=== PATIENT | male | born 1965 | race Caucasian/White ===

== ENCOUNTER → 2019-01-03 | Outpatient (CLI) | payer OTHER | END | disposition home or self-care (01) | LOC: OLS 13:56 → LAB SHORT 13:56 | DX: L08.89 Other specified local infections of the skin and subcutaneous tissue (principal) | CPT/HCPCS: 88305 ==

== ENCOUNTER → 2019-02-14 | Outpatient (CLI) | payer OTHER | END | disposition home or self-care (01) | LOC: PLD 07:58 → LAB SHORT 07:58 | DX: C44.629 Squamous cell carcinoma of skin of left upper limb, including shoulder (principal) | CPT/HCPCS: 88305 ==

== ENCOUNTER → 2019-03-20 | Outpatient (CLI) | payer OTHER | LOC: LAB SHORT 07:46 → PLD 07:46 | DX: L57.0 Actinic keratosis (principal) | CPT/HCPCS: 88305 ==

== ENCOUNTER 2019-10-19 11:39 | Emergency (ER) | payer OTHER ==
[~2019-10-19] VITALS: Ht 177.8 cm; Wt 78.0 kg
[2019-10-19 12:20] LABS: BASOPHILS ABSOLUTE AUTO 0.02 K/mm3 (0.00-0.23); BASOPHILS PERCENT AUTO 0 % (0-2); EOSINOPHILS ABSOLUTE AUTO 0.05 K/mm3 (0.00-0.68); EOSINOPHILS PERCENT AUTO 1 % (0-6); Hematocrit 41.1 % (37.0-53.0); Hemoglobin 14.2 g/dL (13.5-17.5); IMMATURE GRAN ABSOLUTE AUTO 0.02 K/mm3 (0.00-0.10); IMMATURE GRAN PERCENT AUTO 0 % (0-1); LYMPHOCYTES ABSOLUTE AUTO 0.81 K/mm3 (0.84-5.20); LYMPHOCYTES PERCENT AUTO 15 % (21-46); MONOCYTES ABSOLUTE AUTO 0.51 K/mm3 (0.16-1.47); MONOCYTES PERCENT AUTO 10 % (4-13); Mean Corpuscular HGB Conc 34.5 g/dL (31.5-36.5); Mean Corpuscular Volume 93 fL (80-100); Mean Platelet Volume 9.5 fL (9.1-12.4); NEUTROPHILS ABSOLUTE AUTO 3.93 K/mm3 (1.96-9.15); NEUTROPHILS PERCENT AUTO 74 % (41-73); Platelet Count 167 K/mm3 (150-400); RDW Coefficient Variation 13.2 % (11.7-14.2); RDW Standard Deviation 45.1 fL (35.1-46.3); Red Blood Cell Count 4.44 M/mm3 (4.30-5.90); White Blood Cell Count 5.34 K/mm3 (4.00-11.30)
[2019-10-19 12:44] LABS: Alanine Aminotransfer (ALT/SGP 108 U/L (12-78); Albumin, Blood 3.7 g/dL (3.4-5.0); Albumin/Globulin Ratio 0.8 (0.8-1.8); Alk Phos 115 U/L (50-136); Anion Gap 9 mmol/L (6-16); Aspartate Aminotrans (AST/SGOT 128 U/L (12-37); Bilirubin, Total 0.5 mg/dL (0.1-1.0); Blood Urea Nitrogen 5 mg/dL (8-24); Bun/Creatinine Ratio 6.6 (12.0-20.0); CO2, Blood 23 mmol/L (21-32); Calcium, Blood 8.4 mg/dL (8.5-10.1); Chloride, Blood 95 mmol/L (98-108); Creatinine, Blood 0.76 mg/dL (0.60-1.20); Globulin, Blood 4.7 g/dL (2.2-4.0); Glomerular Filtration Rate >60 (60-); Glucose, Blood 103 mg/dL (70-99); Potassium, Blood 4.3 mmol/L (3.5-5.5); Sodium, Blood 127 mmol/L (136-145); Total Protein, Blood 8.4 g/dL (6.4-8.2); Troponin I <0.015 ng/mL (0.000-0.040)
== END 2019-10-19 13:32 | disposition home or self-care (01) ==
LOC: ER 11:39
PROVIDERS: Emergency Medicine
DX: R07.9 Chest pain, unspecified (principal); M25.561 Pain in right knee; L40.9 Psoriasis, unspecified; M79.89 Other specified soft tissue disorders; E87.1 Hypo-osmolality and hyponatremia; Z91.018 Allergy to other foods
CPT/HCPCS: 36415; 71045; 80053; 83880; 84484; 85025; 93005; 93010; 99284-25

== ENCOUNTER → 2019-12-27 | Outpatient (CLI) | payer OTHER ==
[2019-12-27 19:36] LABS: Alanine Aminotransfer (ALT/SGP 53 U/L (12-78); Albumin, Blood 3.9 g/dL (3.4-5.0); Albumin/Globulin Ratio 0.8 (0.8-1.8); Alk Phos 101 U/L (50-136); Anion Gap 10 mmol/L (6-16); Aspartate Aminotrans (AST/SGOT 68 U/L (12-37); Bilirubin, Total 0.5 mg/dL (0.1-1.0); Blood Urea Nitrogen 5 mg/dL (8-24); Bun/Creatinine Ratio 6.9 (12.0-20.0); CO2, Blood 21 mmol/L (21-32); Chloride, Blood 99 mmol/L (98-108); Creatinine, Blood 0.73 mg/dL (0.60-1.20); Globulin, Blood 4.8 g/dL (2.2-4.0); Glomerular Filtration Rate >60 (60-); Glucose, Blood 91 mg/dL (70-99); Potassium, Blood 4.5 mmol/L (3.5-5.5); Prostate Specific Antigen 0.225 ng/mL (0.000-4.000); Sodium, Blood 130 mmol/L (136-145); Total Protein, Blood 8.7 g/dL (6.4-8.2)
== END | disposition home or self-care (01) ==
LOC: LAB SHORT 17:44 → LAB 17:44
PROVIDERS: Nurse Practitioner Family
DX: K76.0 Fatty (change of) liver, not elsewhere classified (principal); N40.1 Benign prostatic hyperplasia with lower urinary tract symptoms
CPT/HCPCS: 80053; 84153

== ENCOUNTER → 2020-04-14 | Outpatient (CLI) | payer OTHER | LOC: LAB 12:30 → LAB SHORT 12:30 | DX: L08.0 Pyoderma (principal) | CPT/HCPCS: 87070; 87077; 87147; 87186; 87205 ==

== ENCOUNTER → 2020-11-06 | Outpatient (CLI) | payer OTHER ==
[2020-11-06 17:29] LABS: Hematocrit 47.2 % (37.0-53.0); Mean Corpuscular HGB 33.1 pg (26.0-34.0); Mean Corpuscular Volume 92 fL (80-100); Mean Platelet Volume 9.6 fL (9.1-12.4); Platelet Count 188 K/mm3 (150-400); RDW Coefficient Variation 12.1 % (11.7-14.2); RDW Standard Deviation 41.1 fL (35.1-46.3); Red Blood Cell Count 5.13 M/mm3 (4.30-5.90); White Blood Cell Count 2.29 K/mm3 (4.00-11.30)
[2020-11-06 17:36] LABS: LDL/HDL RATIO 1.9
[2020-11-06 17:37] LABS: Alanine Aminotransfer (ALT/SGP 26 U/L (12-78); Albumin, Blood 3.9 g/dL (3.4-5.0); Albumin/Globulin Ratio 0.8 (0.8-1.8); Alk Phos 82 U/L (50-136); Anion Gap 9 mmol/L (6-16); Aspartate Aminotrans (AST/SGOT 22 U/L (12-37); Bilirubin, Total 0.3 mg/dL (0.1-1.0); Blood Urea Nitrogen 4 mg/dL (8-24); CHOL/HDL RATIO 3.6; CO2, Blood 20 mmol/L (21-32); Chloride, Blood 102 mmol/L (98-108); Cholesterol 134 mg/dL (50-200); Globulin, Blood 4.7 g/dL (2.2-4.0); Glucose, Blood 72 mg/dL (70-99); HDL Cholesterol 37 mg/dL (>39); Low Density Lipoprotein Chol 71 mg/dL (0-110); Potassium, Blood 3.8 mmol/L (3.5-5.5); Sodium, Blood 131 mmol/L (136-145); Total Protein, Blood 8.6 g/dL (6.4-8.2); Triglycerides 129 mg/dL (30-160); Very Low Density Lipoprot Chol 25 mg/dL (6-32)
[2020-11-06 17:43] LABS: Bun/Creatinine Ratio 5.6 (12.0-20.0); Creatinine, Blood 0.72 mg/dL (0.60-1.20); Glomerular Filtration Rate >60 (60-)
[2020-11-06 18:09] LABS: BASOPHILS PERCENT MAN 0 % (0-2); EOSINOPHILS PERCENT MAN 0 % (0-6); LYMPHOCYTES % ATYPICAL MANUAL 3 % (0-0); LYMPHOCYTES ABSOLUTE MAN 1.23 K/mm3 (0.84-5.20); LYMPHOCYTES PERCENT MAN 51 % (21-46); MONOCYTES PERCENT MAN 9 % (4-13); NEUTROPHILS ABSOLUTE MAN 0.84 K/mm3 (1.96-9.15); SEG NEUTROPHILS PERCENT MAN 37 % (41-73); TOTAL CELLS COUNTED 100
== END ==
LOC: LAB 15:46 → LAB SHORT 15:46
PROVIDERS: Nurse Practitioner Family
DX: Z13.29 Encounter for screening for other suspected endocrine disorder (principal); E11.65 Type 2 diabetes mellitus with hyperglycemia; E78.5 Hyperlipidemia, unspecified; I10 Essential (primary) hypertension; Z91.010 Allergy to peanuts
CPT/HCPCS: 80053; 80061; 83036; 84443; 85025

== ENCOUNTER → 2021-04-22 | Outpatient (CLI) | payer OTHER ==
[~2021-04-22] MED LIST: ASPI81CH; Amitriptyline H10 MG; LOSA25; METFORMIN500 MG/51; MIRT15; OLAN10; OMEP20ER; PRAV20
[2021-04-22 19:17] LABS: BASOPHILS ABSOLUTE AUTO 0.04 K/mm3 (0.00-0.23); BASOPHILS PERCENT AUTO 1 % (0-2); EOSINOPHILS ABSOLUTE AUTO 0.08 K/mm3 (0.00-0.68); EOSINOPHILS PERCENT AUTO 2 % (0-6); Hematocrit 44.4 % (37.0-53.0); Hemoglobin 15.2 g/dL (13.5-17.5); IMMATURE GRAN ABSOLUTE AUTO 0.01 K/mm3 (0.00-0.10); IMMATURE GRAN PERCENT AUTO 0 % (0-1); LYMPHOCYTES ABSOLUTE AUTO 1.16 K/mm3 (0.84-5.20); LYMPHOCYTES PERCENT AUTO 33 % (21-46); MONOCYTES ABSOLUTE AUTO 0.48 K/mm3 (0.16-1.47); MONOCYTES PERCENT AUTO 14 % (4-13); Mean Corpuscular HGB 33.2 pg (26.0-34.0); Mean Corpuscular HGB Conc 34.2 g/dL (31.5-36.5); Mean Corpuscular Volume 97 fL (80-100); Mean Platelet Volume 9.4 fL (9.1-12.4); NEUTROPHILS ABSOLUTE AUTO 1.79 K/mm3 (1.96-9.15); NEUTROPHILS PERCENT AUTO 50 % (41-73); Platelet Count 184 K/mm3 (150-400); RDW Coefficient Variation 12.8 % (11.7-14.2); RDW Standard Deviation 45.7 fL (35.1-46.3); Red Blood Cell Count 4.58 M/mm3 (4.30-5.90); White Blood Cell Count 3.56 K/mm3 (4.00-11.30)
[2021-04-22 19:56] LABS: Alanine Aminotransfer (ALT/SGP 26 U/L (12-78); Albumin, Blood 3.8 g/dL (3.4-5.0); Albumin/Globulin Ratio 0.9 (0.8-1.8); Alk Phos 74 U/L (50-136); Anion Gap 6 mmol/L (6-16); Aspartate Aminotrans (AST/SGOT 18 U/L (12-37); Bilirubin, Total 0.4 mg/dL (0.1-1.0); Blood Urea Nitrogen 6 mg/dL (8-24); Bun/Creatinine Ratio 8.2 (12.0-20.0); CO2, Blood 22 mmol/L (21-32); Calcium, Blood 8.5 mg/dL (8.5-10.1); Chloride, Blood 102 mmol/L (98-108); Creatinine, Blood 0.73 mg/dL (0.60-1.20); Globulin, Blood 4.2 g/dL (2.2-4.0); Glomerular Filtration Rate >60 (60-); Glucose, Blood 109 mg/dL (70-99); Potassium, Blood 3.7 mmol/L (3.5-5.5); Sodium, Blood 130 mmol/L (136-145)
== END | disposition home or self-care (01) ==
LOC: LAB SHORT 15:10
PROVIDERS: Internal Medicine Rheumatology
DX: I10 Essential (primary) hypertension (principal); L93.0 Discoid lupus erythematosus
CPT/HCPCS: 80053; 85025; 85651

== ENCOUNTER → 2022-01-24 | Outpatient (CLI) | payer OTHER ==
[2022-01-24 19:15] LABS: Albumin, Blood 3.2 g/dL (3.4-5.0); Albumin/Globulin Ratio 0.6 (0.8-1.8); Bilirubin, Total 1.1 mg/dL (0.1-1.0); Bun/Creatinine Ratio 10.3 (12.0-20.0); Calcium, Blood 8.9 mg/dL (8.5-10.1); Creatinine, Blood 0.87 mg/dL (0.60-1.20); Globulin, Blood 5.3 g/dL (2.2-4.0); Total Protein, Blood 8.5 g/dL (6.4-8.2)
== END | disposition home or self-care (01) ==
LOC: LAB 18:42 → LAB SHORT 18:42
PROVIDERS: Nurse Practitioner Family
DX: E11.65 Type 2 diabetes mellitus with hyperglycemia (principal)
CPT/HCPCS: 80053; 83036

== ENCOUNTER 2022-05-23 20:52 | Emergency (ER) | payer OTHER ==
[~2022-05-23] VITALS: Ht 175.3 cm; Wt 77.1 kg
[2022-05-23] MEDS ORDERED: FAMO20 PO (21:09)
[2022-05-23] MEDS ORDERED: METF500 PO (21:10)
== END 2022-05-23 21:10 | disposition home or self-care (01) ==
LOC: ER 20:52
DX: M54.50 Low back pain, unspecified (principal); G89.29 Other chronic pain; M19.90 Unspecified osteoarthritis, unspecified site; F17.210 Nicotine dependence, cigarettes, uncomplicated; Z91.018 Allergy to other foods; Z79.82 Long term (current) use of aspirin; Z79.84 Long term (current) use of oral hypoglycemic drugs; Z79.899 Other long term (current) drug therapy
CPT/HCPCS: 99283

== ENCOUNTER 2022-06-11 15:12 | Inpatient (IN) | payer OTHER ==
[~2022-06-11] VITALS: Ht 177.8 cm; Wt 74.7 kg
[~2022-06-11 15:12] MED LIST changes: +FAMO20 PO; +METF500 PO
[2022-06-11] MEDS ORDERED: AMITRIPTYLINE150 M6 PO (15:44)
[2022-06-11] MEDS ORDERED: SODCHL1 PO (15:46)
[2022-06-11] MEDS ORDERED: OLAN10 PO (15:46)
[2022-06-11] MEDS ORDERED: REMERON1510 PO (15:47)
[2022-06-11 16:05] LABS: Albumin, Blood 3.1 g/dL (3.4-5.0); Albumin/Globulin Ratio 0.7 (0.8-1.8); Bilirubin, Total 2.2 mg/dL (0.1-1.0); Bun/Creatinine Ratio 34.3 (12.0-20.0); Creatinine, Blood 0.73 mg/dL (0.60-1.20); Globulin, Blood 4.4 g/dL (2.2-4.0); Potassium, Blood 4.6 mmol/L (3.5-5.5); Total Protein, Blood 7.5 g/dL (6.4-8.2)
[2022-06-11 16:09] LABS: BASOPHILS ABSOLUTE AUTO 0.06 K/mm3 (0.00-0.23); BASOPHILS PERCENT AUTO 1 % (0-2); EOSINOPHILS ABSOLUTE AUTO 0.03 K/mm3 (0.00-0.68); EOSINOPHILS PERCENT AUTO 1 % (0-6); Hematocrit 44.5 % (37.0-53.0); Hemoglobin 15.3 g/dL (13.5-17.5); IMMATURE GRAN ABSOLUTE AUTO 0.03 K/mm3 (0.00-0.10); IMMATURE GRAN PERCENT AUTO 1 % (0-1); LYMPHOCYTES ABSOLUTE AUTO 0.89 K/mm3 (0.84-5.20); LYMPHOCYTES PERCENT AUTO 18 % (21-46); MONOCYTES ABSOLUTE AUTO 0.46 K/mm3 (0.16-1.47); MONOCYTES PERCENT AUTO 10 % (4-13); Mean Corpuscular HGB 31.6 pg (26.0-34.0); Mean Corpuscular HGB Conc 34.4 g/dL (31.5-36.5); Mean Corpuscular Volume 92 fL (80-100); NEUTROPHILS ABSOLUTE AUTO 3.38 K/mm3 (1.96-9.15); NEUTROPHILS PERCENT AUTO 70 % (41-73); Platelet Count 65 K/mm3 (150-400); RDW Coefficient Variation 14.5 % (11.7-14.2); RDW Standard Deviation 47.7 fL (35.1-46.3); Red Blood Cell Count 4.84 M/mm3 (4.30-5.90); White Blood Cell Count 4.85 K/mm3 (4.00-11.30)
[2022-06-11 16:12] LABS: Mean Platelet Volume 13.4 fL (9.1-12.4)
--- NOTE | 2022-06-11 22:53 | NUR ---
TROP OF [address] VALDES VIA TELEPHONE, NO NEW ORDERS RECEIVED. WILL CONT TO MONITOR PT.
[2022-06-12 06:32] LABS: Bun/Creatinine Ratio 28.3 (12.0-20.0); Calcium, Blood 8.7 mg/dL (8.5-10.1); Creatinine, Blood 0.71 mg/dL (0.60-1.20); Potassium, Blood 3.2 mmol/L (3.5-5.5)
[2022-06-12 07:55] LABS: Magnesium, Blood 1.8 mg/dL (1.6-2.4); Phosphorus, Blood 2.7 mg/dL (2.5-4.9)
--- NOTE | 2022-06-12 08:24 | NUR ---
PT DIFFICULT TO AROUSE, BS 70, VSWNL. DR. SANDOVAL NOTIFIED AND ASSESSED PT. VO TO GIVE D50 NOW AND APPLY CONTINUOUS PULSE OXIMETER.
[2022-06-12 10:40] LABS: Hematocrit 39.3 % (37.0-53.0); Mean Corpuscular HGB Conc 35.6 g/dL (31.5-36.5); Mean Corpuscular Volume 90 fL (80-100); Mean Platelet Volume 12.4 fL (9.1-12.4); Platelet Count 54 K/mm3 (150-400); RDW Coefficient Variation 14.2 % (11.7-14.2); RDW Standard Deviation 46.5 fL (35.1-46.3); Red Blood Cell Count 4.38 M/mm3 (4.30-5.90); White Blood Cell Count 3.09 K/mm3 (4.00-11.30)
[2022-06-12 12:07] LABS: U Amphetamine Screen Not Detected; U Barbituate Screen Not Detected; U Benzodiazapine Screen Not Detected; U Buprenorphine Screen Not Detected; U Cannabinoids Screen Not Detected; U Cocaine Screen Not Detected; U Methadone Screen Not Detected; U Methamphetamine Screen Not Detected; U Opiates Screen Not Detected; U Phencyclidine Screen Not Detected
[2022-06-12 12:08] LABS: U Oxycodone Screen Not Detected; U Propoxyphene Screen Not Detected
[2022-06-12 14:39] LABS: Albumin, Blood 2.9 g/dL (3.4-5.0); Anion Gap 6 mmol/L (6-16); Blood Urea Nitrogen 18 mg/dL (8-24); Bun/Creatinine Ratio 22.9 (12.0-20.0); CO2, Blood 25 mmol/L (21-32); Calcium, Blood 8.8 mg/dL (8.5-10.1); Chloride, Blood 101 mmol/L (98-108); Creatinine, Blood 0.79 mg/dL (0.60-1.20); Glomerular Filtration Rate 105 (60-); Glucose, Blood 95 mg/dL (70-99); Phosphorus, Blood 2.6 mg/dL (2.5-4.9); Potassium, Blood 3.2 mmol/L (3.5-5.5); Sodium, Blood 132 mmol/L (136-145)
--- NOTE | 2022-06-12 18:36 | NUR ---
SHIFT SUMMARY: PT A/O X 3, STANDBY ASSIST. COOPERATIVE WITH CARE TODAY. PT WAS NONRESPONSIVE UNTIL ABOUT 1045 WHEN HE BEGAN WAKING UP. HE HAS BEEN INTERMITTENTLY CONFUSED ALL DAY. PT HAS NEEDED RE-DIRECTION AND RE-ORIENTATION TO PLACE AND SITUATION AND RESPONDS WELL TO REDIRECTION. PT HAS VOIDED WELL, IS NOT EATING OR DRINKING FLUIDS WELL AT THIS TIME. PT FINGERS CONTINUE TO BE CYANOTIC AND PURPLE. O2 SATS HAVE REMAINED 97-100% ON RA. PT DOES GET SOB WITH ACTIVITY. PER TELE NSR IN THE 'S AND NO REPORTS OF CHANGES. PT DID BECOME UPSET ABOUT NEEDING TO GO FEED HIS CAT AND WHEN WE EXPLAINED HE COULD NOT LEAVE DUE TO THE SERIOUSNESS OF HIS ILLNESS HE BEGAN RAISING HIS VOICE AND STATING HE WOULD LEAVE AMA. OFFERED TO CALL PT SISTER HERNÁN WHO WAS IN OUR CONTACTS AND HE DID CALM DOWN. HERNÁN WAS UNAWARE HER BROTHER WAS HERE AND SHE CAME TO VISIT AND TOOK HIS KEYS TO GO FEED PT CAT. PT AGREEABLE TO THIS PLAN. HERNÁN STATED SHE CAN PICK HIM UP WHEN HE IS READY TO GO HOME. HERNÁN DID STATE WHEN HER BROTHER MISSES HIS PSYCH MEDICATIONS HE CAN BECOME CONFUSED. PT REPORTED HE HAS NOT HAD HIS PSYCH MEDICATIONS IN ABOUT 5 DAYS. CIWA'S HAVE BEEN 0-3.
--- NOTE | 2022-06-13 04:47 | NUR ---
SHIFT SUMMARY 57 YR M ADMITTED FOR NEW ACUTE CHF. FULL CODE. PT HAD FAMILY AT BEDSIDE AT BEGINNING OF SHIFT. THEY BROUGHT HIM DINNER AND HE APPEARED TO BE IN [employer]. AFTER THEY LEFT HE GOT UP TO GO TO THE BATHROOM W/O ASKING FOR ASSISTANCE AND HE ACCIDENTLY PULLED HIS IV OUT, WHICH BLED EVERYWHERE. A NEW IV WAS INSERTED AND PT DID NOT GET UP ON HIS OWN AFTER THAT. HE SLEPT FOR MOST OF THE REST OF THE SHIFT. HE WAS PLEASANT TO DEAL WITH THIS SHIFT AND DID NOT GET ANGRY OR RUDE WITH ANY OF THE STAFF.
[2022-06-13 06:10] LABS: BASOPHILS ABSOLUTE AUTO 0.03 K/mm3 (0.00-0.23); BASOPHILS PERCENT AUTO 1 % (0-2); EOSINOPHILS ABSOLUTE AUTO 0.02 K/mm3 (0.00-0.68); EOSINOPHILS PERCENT AUTO 1 % (0-6); Hematocrit 38.5 % (37.0-53.0); Hemoglobin 13.7 g/dL (13.5-17.5); IMMATURE GRAN PERCENT AUTO 0 % (0-1); LYMPHOCYTES PERCENT AUTO 22 % (21-46); MONOCYTES ABSOLUTE AUTO 0.26 K/mm3 (0.16-1.47); MONOCYTES PERCENT AUTO 12 % (4-13); Mean Corpuscular HGB 31.8 pg (26.0-34.0); Mean Corpuscular HGB Conc 35.6 g/dL (31.5-36.5); Mean Corpuscular Volume 89 fL (80-100); Mean Platelet Volume 12.3 fL (9.1-12.4); NEUTROPHILS ABSOLUTE AUTO 1.43 K/mm3 (1.96-9.15); NEUTROPHILS PERCENT AUTO 64 % (41-73); Platelet Count 63 K/mm3 (150-400); RDW Coefficient Variation 14.3 % (11.7-14.2); RDW Standard Deviation 46.4 fL (35.1-46.3); Red Blood Cell Count 4.31 M/mm3 (4.30-5.90); White Blood Cell Count 2.24 K/mm3 (4.00-11.30)
[2022-06-13 06:29] LABS: Albumin, Blood 2.7 g/dL (3.4-5.0); Anion Gap 8 mmol/L (6-16); Blood Urea Nitrogen 15 mg/dL (8-24); Bun/Creatinine Ratio 19.3 (12.0-20.0); CO2, Blood 25 mmol/L (21-32); Calcium, Blood 8.4 mg/dL (8.5-10.1); Chloride, Blood 99 mmol/L (98-108); Creatinine, Blood 0.78 mg/dL (0.60-1.20); Glomerular Filtration Rate 105 (60-); Glucose, Blood 87 mg/dL (70-99); Magnesium, Blood 1.7 mg/dL (1.6-2.4); Potassium, Blood 2.9 mmol/L (3.5-5.5); Sodium, Blood 132 mmol/L (136-145)
[2022-06-13 13:02] LABS: Bun/Creatinine Ratio 16.6 (12.0-20.0); Calcium, Blood 8.5 mg/dL (8.5-10.1); Creatinine, Blood 0.78 mg/dL (0.60-1.20); Potassium, Blood 3.3 mmol/L (3.5-5.5)
--- NOTE | 2022-06-13 18:05 | NUR ---
SHIFT SUMMARY PATIENT DENIES PAIN, NAUSEA, AND SHORTNESS OF BREATH. PATIENT IS A 1P WITH A FWW. PATIENT IS A&O X2, VERY FORGETFUL. PATIENT VERY IMPULSIVE AND SOMETIMES HARD TO REDIRECT. PATIENT BECAME INCREASINGLY AGITATED IN AFTERNOON, WANTING TO GO HOME. PATIENT FREQUENTLY SETTING OFF BED ALARM. CIWA 12 AT THE HIGHEST TODAY, MEDICATED. NEW IV PLACED. PATIENT SON AT BEDSIDE MOST OF SHIFT. PATIENT ATE WELL THROUGHOUT SHIFT. PATIENT TO BE NPO AT MIDNIGHT FOR POSSIBLE PROCEDURE TOMORROW. PER DR. MCCONNELL, SHE WILL CALL STRING TOP SEALER IN MORNING.
--- NOTE | 2022-06-14 02:43 | NUR ---
PT STATING WANTS TO GO HOME AND THAT HE HASNT SLEPT IN 6 DAYS. INCREASING AGITATION. DEESCALATED WITH THERAPEUTIC COMMUNICATION. PROVIDED LIBRIUM PER EMAR.
--- NOTE | 2022-06-14 05:54 | NUR ---
PT A&O X 3. IS FORGETFUL AT TIMES AND EXPERIENCES HALLUCINATIONS AND DELUSIONS. 1 PERSON ASSIST AT NIGHT TO BR. CIWAS Q4 HOURS. CIWAS WERE 12 OR LESS. GAVE LIBRIUM PER EMAR ONCE THIS SHIFT D/T INCREASED AGITATION. PT RESPONDED WELL TO MEDICATION. TELE IN PLACE. NSR 70S. DAUGHTER WAS HERE THIS AM. SHE HAS PTS SPARE JULIO AND TOOK SOILED BELONGINGS HOME. WILL CONT TO MONITOR AND PROVIDE CARE T/O SHIFT.
[2022-06-14 06:33] LABS: BASOPHILS ABSOLUTE AUTO 0.05 K/mm3 (0.00-0.23); BASOPHILS PERCENT AUTO 1 % (0-2); EOSINOPHILS ABSOLUTE AUTO 0.01 K/mm3 (0.00-0.68); EOSINOPHILS PERCENT AUTO 0 % (0-6); Hematocrit 40.8 % (37.0-53.0); Hemoglobin 14.3 g/dL (13.5-17.5); IMMATURE GRAN ABSOLUTE AUTO 0.02 K/mm3 (0.00-0.10); IMMATURE GRAN PERCENT AUTO 1 % (0-1); LYMPHOCYTES PERCENT AUTO 21 % (21-46); MONOCYTES ABSOLUTE AUTO 0.47 K/mm3 (0.16-1.47); MONOCYTES PERCENT AUTO 12 % (4-13); Mean Corpuscular HGB 31.6 pg (26.0-34.0); Mean Corpuscular Volume 90 fL (80-100); Mean Platelet Volume 12.8 fL (9.1-12.4); NEUTROPHILS ABSOLUTE AUTO 2.44 K/mm3 (1.96-9.15); NEUTROPHILS PERCENT AUTO 64 % (41-73); Platelet Count 65 K/mm3 (150-400); RDW Coefficient Variation 14.4 % (11.7-14.2); RDW Standard Deviation 47.6 fL (35.1-46.3); Red Blood Cell Count 4.52 M/mm3 (4.30-5.90); White Blood Cell Count 3.79 K/mm3 (4.00-11.30)
[2022-06-14 06:36] LABS: Albumin, Blood 2.9 g/dL (3.4-5.0); Anion Gap 7 mmol/L (6-16); Blood Urea Nitrogen 21 mg/dL (8-24); CO2, Blood 24 mmol/L (21-32); Calcium, Blood 8.7 mg/dL (8.5-10.1); Chloride, Blood 98 mmol/L (98-108); Creatinine, Blood 1.05 mg/dL (0.60-1.20); Glomerular Filtration Rate 84 (60-); Glucose, Blood 151 mg/dL (70-99); Magnesium, Blood 1.7 mg/dL (1.6-2.4); Phosphorus, Blood 3.1 mg/dL (2.5-4.9); Potassium, Blood 4.3 mmol/L (3.5-5.5); Sodium, Blood 129 mmol/L (136-145)
--- NOTE | 2022-06-14 16:28 | NUR ---
SHIFT SUMMARY PT A&OX2-3, VERY LETHARGIC AND HARD TO WAKE DURING MORNING HOURS. PT UNABLE TO WAKE UP ENOUGH TO SAFELY ADMINISTER MEDS-APPEARS VERY TIRED, VSS. SON IN TO SEE PT T/O SHIFT-SON REPORTS PT DRINKS 5-6 COORS LIGHT DAILY LAST DRINK 3 DAYS AGO. PT WOKE UP APPROX 1400. TWO PART STRESS TEST COMPLETE THIS SHIFT. CALL LIGHT W/IN REACH. CONT/INCONT. TELE IN PLACE. 1X W/ UNSTEADY GAIT
--- NOTE | 2022-06-15 03:50 | NUR ---
SHIFT SUMMARY PT HAS BEEN SLEEPING MOST OF SHIFT. AWAKENS TO VOICE AND TOUCH. RESP EVEN AND UNLABORED. OFFERED FLUIDS SEVERAL TIMES AND ASSISTED TO B/R TO VOID. A&O X 3-4 THIS SHIFT, BUT FORGETFUL. HRR. ST AT 102 PER PROFESSOR OF COMMUNICATION AT TIME OF ASSESSMENT. WILL CONTINUE TO MONITOR AND PROVIDE CARE T/O SHIFT.
[2022-06-15 05:52] LABS: Hematocrit 41.4 % (37.0-53.0); Hemoglobin 14.3 g/dL (13.5-17.5)
[2022-06-15 06:36] LABS: Albumin, Blood 2.8 g/dL (3.4-5.0); Anion Gap 4 mmol/L (6-16); Blood Urea Nitrogen 18 mg/dL (8-24); CO2, Blood 27 mmol/L (21-32); Calcium, Blood 8.4 mg/dL (8.5-10.1); Chloride, Blood 101 mmol/L (98-108); Creatinine, Blood 0.82 mg/dL (0.60-1.20); Glomerular Filtration Rate 104 (60-); Glucose, Blood 104 mg/dL (70-99); Phosphorus, Blood 3.7 mg/dL (2.5-4.9); Potassium, Blood 3.5 mmol/L (3.5-5.5); Sodium, Blood 132 mmol/L (136-145)
--- NOTE | 2022-06-15 17:19 | NUR ---
SHIFT SUMMARY PTN CONTINUES WITH CIWA TODAY, THREE SCORES OF ZERO. PTN BP'S LOW AND DR MCCONNELL TOLD PTN WOULD MAKE SOME CHANGES, MOST LIKELY PUT HIM ON LISINOPRIL. DR MCCONNELL SPENT SOME TIME EDUCATING PTN ON RISKS AND BENEFITS OF CONTINUING TO SMOKE AND DRINK ALCOHOL. PTN WAS ABLE TO RECALL CONVERSATION AND UNDERSTANDING MUCH LATER TO MEAN THAT IF HE DID NOT QUIT SMOKING AND DRINKING HE WOULD GET A HOLE IN HIS HEART. PTN TELEMETRY SINUS BBB, HR97 THIS SHIFT. NO ACUTE EVENTS. PTN IS WEAK AND DOES NEED ASSIST FROM BED TO CHAIR, BUT IS AWAKE AND IN HIS CHAIR MUCH OF DAY. CONTINUE TO MONITOR.
--- NOTE | 2022-06-15 21:14 | NUR ---
HELD METOPROLOL FOR SBP <90. UNABLE TO OBTAIN 02 SATURATIONS ON DISTAL EXTREMITIES DUE TO VERY POOR CIRCULATION IN ALL DISTAL EXTREMITIES WHICH ARE ALL VERY BLUE. RT NOTIFIED. EAR PROBE PLACED SATS RUNNING BETWEEN HIGH 70'S TO LOW 90'S. 2 LITERS NC PLACED. WILL CONTINUE CLOSE MONITORING
[2022-06-15 22:02] LABS: PCO2 Arterial 32.3 mmHg (35-45); PO2 Arterial 231 mmHg (80-100); pH Blood Arterial 7.45 (7.35-7.45)
[2022-06-16 05:49] LABS: Hematocrit 40.9 % (37.0-53.0); Hemoglobin 14.5 g/dL (13.5-17.5)
[2022-06-16 06:19] LABS: Anion Gap 7 mmol/L (6-16); Blood Urea Nitrogen 23 mg/dL (8-24); Bun/Creatinine Ratio 23.7 (12.0-20.0); CO2, Blood 23 mmol/L (21-32); Calcium, Blood 8.8 mg/dL (8.5-10.1); Chloride, Blood 99 mmol/L (98-108); Creatinine, Blood 0.97 mg/dL (0.60-1.20); Glomerular Filtration Rate 92 (60-); Glucose, Blood 114 mg/dL (70-99); Phosphorus, Blood 3.2 mg/dL (2.5-4.9); Potassium, Blood 4.1 mmol/L (3.5-5.5); Sodium, Blood 129 mmol/L (136-145)
--- NOTE | 2022-06-16 06:35 | NUR ---
PATIENT A&OX4 EARLY IN SHIFT, AND BECAME INCREASINGLY CONFUSED AND IMPULSIVE BETWEEN 2300 - 0300 WHEN HE FELL ASLEEP. HAD TO CALL DAUGHTER AROUND 0100 TO HELP CALM HER FATHER DOWN AT ONE POINT HE WANTED TO LEAVE AMA. CYANOSIS ON FINGERS AND TOES APPEARS TO HAVE IMPROVED SINCE PATIENT HAS BEEN SLEEPING. NO COMPLAINTS OF PAIN OR PRESSURE OVERNIGHT.
--- NOTE | 2022-06-16 16:58 | NUR ---
SHIFT SUMMARY PT AOX3-4, I P ASSIST TO THE BATHROOM. HE SLEPT MOST OF THE START OF THE SHIFT, NAPPING OFF AND ON THE REST OF THE TIME. HE HAS ATTEMPTED TO GET OUT OF BED ABOUT TWICE BUT EASY TO REDIRECT. SPOKE WITH HIS DAUGHTER TODAY AND SHE WISHES TO SPEAK TO THE PROVIDER, HER NUMBER IS LOCATED ON THE WHITE BOARD. HE REMAINS ON A 1000 ML FLUID RESTRICTION. HE HAS WANTED TO LEAVE TWICE TODAY BUT REDIRECTED, HE UNDERSTOOD. WILL REPORT TO ONCOMING NURSE.
--- NOTE | 2022-06-17 05:54 | NUR ---
PATIENT AGAIN BECAME CONFUSED AND AGITATED AROUND HS. CIWA SCORE OF EIGHT. 25MG LIBRIUM GIVEN SHORTLY AFTER HS. PATIENT SLEPT HARD ALL NIGHT. ALL CIWAS AFTER THAT WERE ZERO. FINGERS THIS MORNING LOOKING MUCH BETTER AND LESS DUSKY. BACK, LEGS AND BUTTOCKS DO NOT APPEAR MOTTLES THEY DID EARLIER, BUT RED BLOTCHY RASH APPEARS MORE PRONOUNCED THIS MORNING THAN LAST NIGHT. WILL MAKE SURE DAY RN IS INFORMED, SO HOSPITALIST WILL TAKE A LOOK AT ITTHIS MORNING
[2022-06-17 06:02] LABS: Calcium, Blood 8.7 mg/dL (8.5-10.1); Creatinine, Blood 0.9 mg/dL (0.60-1.20)
[2022-06-17] MEDS ORDERED: FURO20 PO (14:00)
[2022-06-17] MEDS ORDERED: Lisinopril2.5 MG PO (14:01)
[2022-06-17] MEDS ORDERED: METO25 PO (14:02)
[2022-06-17] MEDS ORDERED: MUPIROCIN1 G1 TOP (14:03)
[2022-06-17] MEDS ORDERED: NICODERM CQ1 EA11 TOP (14:05)
--- NOTE | 2022-06-17 14:43 | NUR ---
DISCHARGE NOTE MR DOHERTY WAS DISCHARGED HOME FROM [facility] AT 1440 WITH HIS SISTER AND HIS DAUGHTER JANKI. JANKI PLANS TO STAY WITH HIM AND CARE FOR HIM. I GAVE THEM VERBAL AND WRITTEN DISCHARGE INSTRUCTIONS AND BOTH JANKI AND SISTER HERNÁN VERBALISED UNDERSTANDING. MR FRANKEL IS ABLE TO UNDERSTAND SOME OF THE DISCHARGE INSTRUCTIONS, BUT HAS SOME CONFUSION AND WAS NOT ACTIVELY ENGAGED IN DISCHARGE CONVERSATION. PLAN FOR HOME PHYSICAL THERAPY, CM SAID THEY WILL CALL HERNÁN TO MAKE ARRANGEMENTS. NO PIV IN PLACE. PT WAS ASSISTED TO DRESS AND ESCORTED VIA WHEELCHAIR FOR DISCHARGE. DR MCKEON LOOKED AT MOTTLED SKIN ON PT'S BACK AND DISCOLORATION TO HANDS THIS AM. HANDS WERE WARM ON ASSESSMENT. THREE RED VALENZUELA TO PT'S RIGHT INNER CALF AREA. NO C/O PAIN OR DISCOMFORT PRIOR TO DISCHARGE.
== END 2022-06-17 14:40 | disposition home health service (06) | DRG 292 ==
LOC: ER 15:12 → MEDS 15:13
PROVIDERS: Emergency Medicine; Internal Medicine; ADMIT Internal Medicine
PROC: HZ2ZZZZ Detoxification Services for Substance Abuse Treatment (ICD-10-PCS; principal; 2022-06-12)
PROC: 4A033R1 Measurement of Arterial Saturation, Peripheral, Percutaneous Approach (ICD-10-PCS; 2022-06-12)
DX: I50.21 Acute systolic (congestive) heart failure (principal); E87.1 Hypo-osmolality and hyponatremia; I42.0 Dilated cardiomyopathy; I24.8 Other forms of acute ischemic heart disease; Z28.21 Immunization not carried out because of patient refusal; J44.9 Chronic obstructive pulmonary disease, unspecified; F31.9 Bipolar disorder, unspecified; F43.10 Post-traumatic stress disorder, unspecified; E11.9 Type 2 diabetes mellitus without complications; F17.210 Nicotine dependence, cigarettes, uncomplicated; I34.0 Nonrheumatic mitral (valve) insufficiency; R40.0 Somnolence; E87.6 Hypokalemia; D72.818 Other decreased white blood cell count; I27.20 Pulmonary hypertension, unspecified; D69.59 Other secondary thrombocytopenia; F10.20 Alcohol dependence, uncomplicated; Z71.41 Alcohol abuse counseling and surveillance of alcoholic; Z90.49 Acquired absence of other specified parts of digestive tract; Z91.018 Allergy to other foods; Z79.82 Long term (current) use of aspirin; Z79.84 Long term (current) use of oral hypoglycemic drugs; Z79.899 Other long term (current) drug therapy
CPT/HCPCS: 36415; 36600; 71045; 78452; 80048; 80053; 80069; 82803; 82947; 83735; 83880; 84100; 84484; 85014; 85018; 85025; 85027; 93005; 93010; 93017; 93306; 94760; 94762; 96372; 96374; 96375; 96376; 97110; 97116; 97161; 97166; 97530; 97535; 99285-25; A9270; A9500; G0378; J0706; J1650; J1940; J2060; J2785; J3480; J7050; J7799

== ENCOUNTER → 2022-06-23 | Outpatient (CLI) | payer OTHER ==
[~2022-06-23] MED LIST changes: +AMITRIPTYLINE150 M6 PO; +FURO20 PO; +Lisinopril2.5 MG PO; +METO25 PO; +MUPIROCIN1 G1 TOP; +NICODERM CQ1 EA11 TOP; +OLAN10 PO; +REMERON1510 PO; +SODCHL1 PO
[2022-06-23 19:44] LABS: BASOPHILS ABSOLUTE AUTO 0.05 K/mm3 (0.00-0.23); BASOPHILS PERCENT AUTO 2 % (0-2); EOSINOPHILS ABSOLUTE AUTO 0.04 K/mm3 (0.00-0.68); EOSINOPHILS PERCENT AUTO 1 % (0-6); Hemoglobin 14.2 g/dL (13.5-17.5); IMMATURE GRAN ABSOLUTE AUTO 0.01 K/mm3 (0.00-0.10); IMMATURE GRAN PERCENT AUTO 0 % (0-1); LYMPHOCYTES ABSOLUTE AUTO 0.75 K/mm3 (0.84-5.20); LYMPHOCYTES PERCENT AUTO 27 % (21-46); MONOCYTES ABSOLUTE AUTO 0.24 K/mm3 (0.16-1.47); MONOCYTES PERCENT AUTO 9 % (4-13); Mean Corpuscular HGB 30.9 pg (26.0-34.0); Mean Corpuscular Volume 94 fL (80-100); NEUTROPHILS ABSOLUTE AUTO 1.68 K/mm3 (1.96-9.15); NEUTROPHILS PERCENT AUTO 61 % (41-73); Platelet Count 99 K/mm3 (150-400); RDW Coefficient Variation 15.2 % (11.7-14.2); RDW Standard Deviation 52.6 fL (35.1-46.3); White Blood Cell Count 2.77 K/mm3 (4.00-11.30)
[2022-06-23 19:55] LABS: Mean Platelet Volume 13.2 fL (9.1-12.4)
[2022-06-23 21:18] LABS: Albumin, Blood 3.2 g/dL (3.4-5.0); Albumin/Globulin Ratio 0.7 (0.8-1.8); Bilirubin, Total 1.9 mg/dL (0.1-1.0); Creatinine, Blood 0.74 mg/dL (0.60-1.20); Globulin, Blood 4.6 g/dL (2.2-4.0); Potassium, Blood 3.8 mmol/L (3.5-5.5); Total Protein, Blood 7.8 g/dL (6.4-8.2)
== END | disposition home or self-care (01) ==
LOC: LAB SHORT 16:30
PROVIDERS: Nurse Practitioner Family
DX: L60.0 Ingrowing nail (principal); E87.1 Hypo-osmolality and hyponatremia; I11.0 Hypertensive heart disease with heart failure; I50.9 Heart failure, unspecified
CPT/HCPCS: 80053; 83880; 85025; 87070; 87075; 87077; 87147; 87186; 87205

== ENCOUNTER 2022-06-28 14:34 | Emergency (ER) | payer OTHER ==
[~2022-06-28] VITALS: Ht 177.8 cm; Wt 69.0 kg
[2022-06-28 15:12] LABS: BASOPHILS ABSOLUTE AUTO 0.05 K/mm3 (0.00-0.23); BASOPHILS PERCENT AUTO 1 % (0-2); EOSINOPHILS ABSOLUTE AUTO 0.01 K/mm3 (0.00-0.68); EOSINOPHILS PERCENT AUTO 0 % (0-6); Hemoglobin 14.2 g/dL (13.5-17.5); IMMATURE GRAN ABSOLUTE AUTO 0.03 K/mm3 (0.00-0.10); IMMATURE GRAN PERCENT AUTO 1 % (0-1); LYMPHOCYTES ABSOLUTE AUTO 1.06 K/mm3 (0.84-5.20); LYMPHOCYTES PERCENT AUTO 26 % (21-46); MONOCYTES ABSOLUTE AUTO 0.39 K/mm3 (0.16-1.47); MONOCYTES PERCENT AUTO 10 % (4-13); Mean Corpuscular HGB Conc 33.8 g/dL (31.5-36.5); Mean Corpuscular Volume 92 fL (80-100); Mean Platelet Volume 12.8 fL (9.1-12.4); NEUTROPHILS ABSOLUTE AUTO 2.47 K/mm3 (1.96-9.15); NEUTROPHILS PERCENT AUTO 62 % (41-73); Platelet Count 90 K/mm3 (150-400); RDW Coefficient Variation 15.4 % (11.7-14.2); RDW Standard Deviation 51.1 fL (35.1-46.3); Red Blood Cell Count 4.58 M/mm3 (4.30-5.90); White Blood Cell Count 4.01 K/mm3 (4.00-11.30)
[2022-06-28 15:26] LABS: Albumin, Blood 3.1 g/dL (3.4-5.0); Albumin/Globulin Ratio 0.7 (0.8-1.8); Bilirubin, Total 2.3 mg/dL (0.1-1.0); Bun/Creatinine Ratio 31.8 (12.0-20.0); Calcium, Blood 8.8 mg/dL (8.5-10.1); Creatinine, Blood 0.76 mg/dL (0.60-1.20); Globulin, Blood 4.5 g/dL (2.2-4.0); Potassium, Blood 4.5 mmol/L (3.5-5.5); Total Protein, Blood 7.6 g/dL (6.4-8.2)
[2022-06-28 16:06] LABS: Base Excess Venous -2.8 mmol/L; Bicarbonate Venous 21.2 mmol/L (24.0-30.0); PCO2 Venous 41.6 mmHg (38-42); pH Blood Venous 7.35 (7.34-7.37)
[2022-06-28 16:51] LABS: Influenza A, PCR NEGATIVE (NEGATIVE); Influenza B, PCR NEGATIVE (NEGATIVE); Resp Syncytial Virus, PCR NEGATIVE (NEGATIVE); SARS-Cov-2 (COVID-19) PCR, MMC NEGATIVE (NEGATIVE)
== END 2022-06-28 17:36 | disposition home or self-care (01) ==
LOC: ER 14:34
PROVIDERS: Emergency Medicine
DX: R06.00 Dyspnea, unspecified (principal); R40.0 Somnolence; F17.210 Nicotine dependence, cigarettes, uncomplicated; Z20.822 Contact with and (suspected) exposure to COVID-19; Z79.82 Long term (current) use of aspirin; Z79.84 Long term (current) use of oral hypoglycemic drugs; Z79.899 Other long term (current) drug therapy
CPT/HCPCS: 0241U; 71046; 80053; 82803; 83880; 85025; 93005; 93010

== ENCOUNTER 2022-06-30 00:55 | Inpatient (IN) | payer OTHER ==
[~2022-06-30] VITALS: Ht 182.9 cm; Wt 72.8 kg
[2022-06-30 01:20] LABS: pH Blood Arterial 7.37 (7.35-7.45)
[2022-06-30 01:21] LABS: PCO2 Arterial 29.2 mmHg (35-45); PO2 Arterial >500 mmHg (80-100)
[2022-06-30 02:06] LABS: BASOPHILS ABSOLUTE AUTO 0.03 K/mm3 (0.00-0.23); BASOPHILS PERCENT AUTO 1 % (0-2); EOSINOPHILS ABSOLUTE AUTO 0.01 K/mm3 (0.00-0.68); EOSINOPHILS PERCENT AUTO 0 % (0-6); Hematocrit 42.8 % (37.0-53.0); Hemoglobin 14.1 g/dL (13.5-17.5); IMMATURE GRAN ABSOLUTE AUTO 0.02 K/mm3 (0.00-0.10); IMMATURE GRAN PERCENT AUTO 0 % (0-1); LYMPHOCYTES ABSOLUTE AUTO 0.82 K/mm3 (0.84-5.20); LYMPHOCYTES PERCENT AUTO 16 % (21-46); MONOCYTES ABSOLUTE AUTO 0.37 K/mm3 (0.16-1.47); MONOCYTES PERCENT AUTO 7 % (4-13); Mean Corpuscular HGB 31.2 pg (26.0-34.0); Mean Corpuscular HGB Conc 32.9 g/dL (31.5-36.5); Mean Corpuscular Volume 95 fL (80-100); NEUTROPHILS ABSOLUTE AUTO 3.82 K/mm3 (1.96-9.15); NEUTROPHILS PERCENT AUTO 75 % (41-73); Platelet Count 132 K/mm3 (150-400); RDW Coefficient Variation 15.9 % (11.7-14.2); RDW Standard Deviation 54.3 fL (35.1-46.3); Red Blood Cell Count 4.52 M/mm3 (4.30-5.90); White Blood Cell Count 5.07 K/mm3 (4.00-11.30)
[2022-06-30 02:41] LABS: Albumin, Blood 3.4 g/dL (3.4-5.0); Albumin/Globulin Ratio 0.7 (0.8-1.8); Bilirubin, Total 2.3 mg/dL (0.1-1.0); Bun/Creatinine Ratio 29.4 (12.0-20.0); Calcium, Blood 9.1 mg/dL (8.5-10.1); Creatinine, Blood 0.95 mg/dL (0.60-1.20); Globulin, Blood 4.7 g/dL (2.2-4.0); Potassium, Blood 5.1 mmol/L (3.5-5.5); Total Protein, Blood 8.1 g/dL (6.4-8.2)
[2022-06-30 05:46] LABS: BASOPHILS ABSOLUTE AUTO 0.03 K/mm3 (0.00-0.23); BASOPHILS PERCENT AUTO 1 % (0-2); EOSINOPHILS PERCENT AUTO 0 % (0-6); Hematocrit 39.1 % (37.0-53.0); Hemoglobin 13.4 g/dL (13.5-17.5); IMMATURE GRAN PERCENT AUTO 0 % (0-1); LYMPHOCYTES ABSOLUTE AUTO 0.69 K/mm3 (0.84-5.20); LYMPHOCYTES PERCENT AUTO 19 % (21-46); MONOCYTES ABSOLUTE AUTO 0.31 K/mm3 (0.16-1.47); MONOCYTES PERCENT AUTO 8 % (4-13); Mean Corpuscular HGB 31.2 pg (26.0-34.0); Mean Corpuscular HGB Conc 34.3 g/dL (31.5-36.5); Mean Corpuscular Volume 91 fL (80-100); Mean Platelet Volume 12.7 fL (9.1-12.4); NEUTROPHILS ABSOLUTE AUTO 2.64 K/mm3 (1.96-9.15); NEUTROPHILS PERCENT AUTO 72 % (41-73); Platelet Count 105 K/mm3 (150-400); RDW Coefficient Variation 15.7 % (11.7-14.2); RDW Standard Deviation 50.8 fL (35.1-46.3); White Blood Cell Count 3.67 K/mm3 (4.00-11.30)
[2022-06-30 08:02] LABS: Bun/Creatinine Ratio 33.6 (12.0-20.0); Calcium, Blood 8.8 mg/dL (8.5-10.1); Creatinine, Blood 0.8 mg/dL (0.60-1.20); Potassium, Blood 4.2 mmol/L (3.5-5.5)
[2022-06-30 11:41] LABS: Source, Urine Straight Cath
[2022-06-30 11:49] LABS: Appearance, Urine Clear (Clear); Blood, Urine Neg (Neg); Color, Urine Amber (P-Yellow); Glucose Qualitative, Urine Neg (Neg); Ketones, Urine Neg (Neg); Leukocyte Esterase, Urine Neg (Neg); Nitrite, Urine Neg (Neg); Protein, Urine 2+ (Neg); Specific Gravity, Urine 1.025 (1.003-1.022); Urobilinogen, Urine 2+ (Normal)
[2022-06-30 12:23] LABS: Bilirubin, Urine 1+ (Neg)
--- NOTE | 2022-06-30 12:24 | NUR ---
REASSESSMENT PT ARRIVED TO PCU 12 THIS AM ABOUT 0715. PT WAS SOMNOLENT AT THAT TIME, ONLY GRUNTED WHEN MOVED TO NEW BED, HOWEVER WHEN ORAL CARE PERFORMED HE DID WAKE UP AND TALK A LITTLE. HE KNEW HE WAS IN THE HOSPITAL, BUT DIDN'T KNOW WHERE OR WHAT YEAR IT WAS. SOON HE LEFT ALONE HE WENT RIGHT BACK TO SLEEP. ATTEMPTED TO WAKE PT UP ENOUGH TO GET HIM TO VOID AROUND 11 FOR A UA AND PT OPENED HIS EYES BUT WOULDN'T SAY ANYTHING. STRAIGHT CATH PERFORMED TO GET URINE SAMPLE AND WITH THAT PROCEDURE PT WOKE UP MORE AGAIN. DURING STRAIGHT CATH HE WAS CONVERSING APPROPRIATELY, ALTHOUGH STILL NO MEMORY OF WHERE HE IS, OTHER THAN THE HOSPITAL, OR WHAT YEAR IT IS. PT STATED HE NEEDED TO HAVE A BM. ATTEMPTED BEDPAN, BUT PT SAID THAT WOULDN'T WORK. ASSISTED PT TO COMMODE WITH 2 PERSON ASSIST. PT HAS A SHUFFLING GAIT AND WAS UNSTEADY, BUT BORE HIS OWN WEIGHT. PT WAS UNABLE TO HAVE A BM AND ASSISTED BACK TO BED. ORIENTED PT TO CALL LIGHT AND SAFETY/FALL PRECAUTIONS PT MADE COMMENTS ABOUT GETTING UP TO THE BR ON HIS OWN. EVEN AFTER WARNING PT ABOUT SAFETY, PT SAYS HE WILL NOT RISK HAVING A BM IN THE BED AND WILL NOT WAIT FOR STAFF IF HE HAS TO GO. BED ALARM ON, LOWER SIDE RAILS UP WITH ONE UPPER SIDE RAIL DOWN. CALL LIGHT IN REACH. AFTER GETTING IN BED AND LEFT ALONE PT REMAINS ALERT AND ASKING FOR SOMETHING TO DRINK, WILL CALL MD. LUNGS REMAIN CLEAR AND SPO2 100% ON RA. SR, BP STABLE. FINGERTIPS AND TOES ARE DUSKY, PT STATES THAT HE HAS BAD CIRCULATION AND THEY'RE ALWAYS COLD. SPOKE WITH PT'S SISTER THIS AM AND PROVIDED UPDATE. ALSO GAVE NUMBER TO RESIDENT TO UPDATE HER. SHE STATED PT'S ADA, JANKI, HAD BEEN LIVING WITH PT AND PROVIDED HER NUMBER, BUT SO FAR SHE HAS NOT ANSWERED.
[2022-06-30 12:26] LABS: Bacteria Many /hpf; Mucus Mod (0-Heavy); Red Blood Cells, Urine Not Seen /hpf (0-2); Squamous Epithelial Cells Few /hpf (Few); White Blood Cells, Urine Not Seen /hpf (0-5)
[2022-06-30 13:05] LABS: U Amphetamine Screen Not Detected; U Barbituate Screen Not Detected; U Benzodiazapine Screen DETECTED; U Buprenorphine Screen Not Detected; U Cannabinoids Screen DETECTED; U Cocaine Screen Not Detected; U Methadone Screen Not Detected; U Methamphetamine Screen Not Detected; U Opiates Screen Not Detected; U Oxycodone Screen Not Detected; U Phencyclidine Screen Not Detected; U Propoxyphene Screen Not Detected
--- NOTE | 2022-06-30 16:58 | NUR ---
SHIFT SUMMARY PT HAS BECOME MORE ALERT THE DAY HAS PROGRESSED. HE IS NOW ALERT, EVEN WHEN LEFT ALONE. ORIENTED TO PERSON AND PLACE, STILL CONFUSED TO DATE AND SEEMS TO HAVE SOME SHORT TERM MEMORY LOSS. LUNGS ARE CLEAR, RA. SSR, BP STABLE. FINGERTIPS AND FEET REMAIN COLD AND DUSKY. ATE LUNCH WITHOUT DIFFICULTY. GOT UP TO THE COMMODE TO VOID, BUT ONLY WENT LESS THAN 10ML. ASSISTED PT WITH DIALING AND HE CALLED AND SPOKE TO HIS ADA.
[2022-07-01 04:10] LABS: BASOPHILS ABSOLUTE AUTO 0.05 K/mm3 (0.00-0.23); BASOPHILS PERCENT AUTO 1 % (0-2); EOSINOPHILS ABSOLUTE AUTO 0.07 K/mm3 (0.00-0.68); EOSINOPHILS PERCENT AUTO 2 % (0-6); Hematocrit 39.5 % (37.0-53.0); Hemoglobin 13.8 g/dL (13.5-17.5); IMMATURE GRAN PERCENT AUTO 0 % (0-1); LYMPHOCYTES ABSOLUTE AUTO 1.03 K/mm3 (0.84-5.20); LYMPHOCYTES PERCENT AUTO 29 % (21-46); MONOCYTES ABSOLUTE AUTO 0.31 K/mm3 (0.16-1.47); MONOCYTES PERCENT AUTO 9 % (4-13); Mean Corpuscular HGB 31.9 pg (26.0-34.0); Mean Corpuscular HGB Conc 34.9 g/dL (31.5-36.5); Mean Corpuscular Volume 91 fL (80-100); Mean Platelet Volume 12.3 fL (9.1-12.4); NEUTROPHILS ABSOLUTE AUTO 2.09 K/mm3 (1.96-9.15); NEUTROPHILS PERCENT AUTO 59 % (41-73); Platelet Count 104 K/mm3 (150-400); RDW Coefficient Variation 15.8 % (11.7-14.2); RDW Standard Deviation 50.4 fL (35.1-46.3); Red Blood Cell Count 4.33 M/mm3 (4.30-5.90); White Blood Cell Count 3.55 K/mm3 (4.00-11.30)
[2022-07-01 04:32] LABS: Albumin/Globulin Ratio 0.8 (0.8-1.8); Bilirubin, Total 1.6 mg/dL (0.1-1.0); Bun/Creatinine Ratio 27.6 (12.0-20.0); Calcium, Blood 8.2 mg/dL (8.5-10.1); Creatinine, Blood 0.8 mg/dL (0.60-1.20); Globulin, Blood 3.6 g/dL (2.2-4.0); Potassium, Blood 3.7 mmol/L (3.5-5.5); Total Protein, Blood 6.6 g/dL (6.4-8.2)
--- NOTE | 2022-07-01 05:46 | NUR ---
SHIFT SUMMARY OVERNIGHT, PATIENT ALERT AND ORIENTED X3-4. UNDERSTANDS THAT HE IS IN THE HOSPITAL, BUT DISORIENTED TO THE SITUATION THAT BROUGHT HIM HERE. OVERALL QUITE FORGETFUL, FREQUENTLY REPEATING STATEMENTS OR QUESTIONS A FEW MINUTES APART. COOPERATIVE, PLEASANT. MONITOR SHOWING SR, HR 90S. BPS SLIGHTLY SLOW; HOWEVER, MAPS >65. SCHEDULED METOPROLOL HELD PER PARAMETER ORDERS. AFEBRILE. REMAINED ON RA, SPO2 >94%. BLADDER SCANNED AFTER HAVING ONLY ONE VOID VIA STRAIGHT CATH ON DAY SHIFT. BLADDER SCAN SHOWED >400CC. PATIENT REFUSING STRAIGHT CATH, BUT WAS EVENTUALLY ABLE TO VOID 375CC. TOLERATING DIET. NO BM OVERNIGHT. TURNED WITH MINIMAL ASSIST IN BED; FAIRLY INDEPENDENT MOBILITY IN BED. HEALING WOUND TO RIGHT HALLUX; SITE OF PREVIOUS MRSA INFECTION. NO DRAINAGE NOTED AND RESIDENTIAL TECH. RIGHT FOOT IS SLIGHTLY MORE EDEMATOUS THAN LEFT; ELEVATED WHEN POSSIBLE. MAINTENANCE IVF INFUSING. PATIENT RESTING AT THIS TIME, CALL LIGHT WITHIN REACH.
--- NOTE | 2022-07-01 17:03 | NUR ---
SHIFT SUMMARY NO ACUTE CHANGES DURING SHIFT. PT UP FROM PCU. PT SBA WITH FWW IN ROOM. PT REMAINS ON RA. WOUND TO R GREAT TOE, DRESSING IN PLACE, CDI. PT/OT ORDERED FOR PT. CONTACT PRECAUTIONS FOR MRSA OF THE WOUND. NO C/O PAIN AT THIS TIME. WILL CONTINUE TO MONITOR. CALL LIGHT WITHIN REACH
--- NOTE | 2022-07-02 04:37 | NUR ---
Shift Summary PT AOx4, 1 SBA w FWW to the BR. Pt took a shower early in the shift. Dressing on R great toe remains C/D/I. Pt c/o some pain in his R shoulder and back, medicated once with PRN tylenol. Rcving IV ABX. IV in L hand became painful, d/c'd, IV in R hand remains patent. VSS, pleasant and cooperative.
[2022-07-02 06:13] LABS: BASOPHILS ABSOLUTE AUTO 0.06 K/mm3 (0.00-0.23); BASOPHILS PERCENT AUTO 2 % (0-2); EOSINOPHILS ABSOLUTE AUTO 0.04 K/mm3 (0.00-0.68); EOSINOPHILS PERCENT AUTO 1 % (0-6); Hematocrit 39.8 % (37.0-53.0); Hemoglobin 13.6 g/dL (13.5-17.5); Mean Corpuscular HGB Conc 34.2 g/dL (31.5-36.5); Mean Corpuscular Volume 91 fL (80-100); Mean Platelet Volume 12.6 fL (9.1-12.4); Platelet Count 105 K/mm3 (150-400); RDW Coefficient Variation 15.8 % (11.7-14.2); Red Blood Cell Count 4.39 M/mm3 (4.30-5.90); White Blood Cell Count 3.17 K/mm3 (4.00-11.30)
[2022-07-02 06:14] LABS: IMMATURE GRAN ABSOLUTE AUTO 0.01 K/mm3 (0.00-0.10); IMMATURE GRAN PERCENT AUTO 0 % (0-1); LYMPHOCYTES ABSOLUTE AUTO 1.07 K/mm3 (0.84-5.20); LYMPHOCYTES PERCENT AUTO 34 % (21-46); MONOCYTES PERCENT AUTO 13 % (4-13); NEUTROPHILS ABSOLUTE AUTO 1.59 K/mm3 (1.96-9.15); NEUTROPHILS PERCENT AUTO 50 % (41-73)
[2022-07-02 06:36] LABS: Bun/Creatinine Ratio 31.4 (12.0-20.0); Creatinine, Blood 0.8 mg/dL (0.60-1.20); Potassium, Blood 3.9 mmol/L (3.5-5.5)
[2022-07-02 10:55] LABS: SARS-Cov-2 (COVID-19) PCR, MMC NEGATIVE (NEGATIVE)
[2022-07-02 11:50] LABS: Vancomycin, Trough 24.5 ug/mL (5.0-10.0)
--- NOTE | 2022-07-02 12:15 | NUR ---
PT DISCHARGED REPORT CALLED TO RN AT [facility]. THE PT WAS TRANSFERED VIA WHEELCHAIR ACCOMPANIED BY TO NURSE TO MEET THE TAXI. THE PTS RIGHT GREAT TOE WAS CLEANED AND REDRESSED PRIOR TO DC.
== END 2022-07-02 12:14 | disposition home or self-care (01) | DRG 91 ==
LOC: ER 00:55 → PCU 03:44 → MEDS 03:44 → PCU 07:33 → MEDS 07-01 10:18
PROVIDERS: Emergency Medicine; Family Medicine; Hospitalist; Student in an Organized Health Care Education/Training Program; ADMIT Internal Medicine
PROC: 4A033R1 Measurement of Arterial Saturation, Peripheral, Percutaneous Approach (ICD-10-PCS; principal; 2022-06-30)
PROC: 5A09357 Assistance with Respiratory Ventilation, Less than 24 Consecutive Hours, Continuous Positive Airway Pressure (ICD-10-PCS; 2022-06-30)
DX: G92.8 Other toxic encephalopathy (principal); J96.01 Acute respiratory failure with hypoxia; E87.1 Hypo-osmolality and hyponatremia; I50.22 Chronic systolic (congestive) heart failure; I42.0 Dilated cardiomyopathy; E87.20 Acidosis, unspecified; F10.20 Alcohol dependence, uncomplicated; Z20.822 Contact with and (suspected) exposure to COVID-19; J44.9 Chronic obstructive pulmonary disease, unspecified; F31.9 Bipolar disorder, unspecified; T43.015A Adverse effect of tricyclic antidepressants, initial encounter; T43.025A Adverse effect of tetracyclic antidepressants, initial encounter; T43.595A Adverse effect of other antipsychotics and neuroleptics, initial encounter; F43.10 Post-traumatic stress disorder, unspecified; K75.81 Nonalcoholic steatohepatitis (NASH); L93.0 Discoid lupus erythematosus; M35.00 Sjogren syndrome, unspecified; L08.89 Other specified local infections of the skin and subcutaneous tissue; I95.9 Hypotension, unspecified; F17.210 Nicotine dependence, cigarettes, uncomplicated; E11.51 Type 2 diabetes mellitus with diabetic peripheral angiopathy without gangrene; F15.11 Other stimulant abuse, in remission; E87.6 Hypokalemia; D69.59 Other secondary thrombocytopenia; D72.818 Other decreased white blood cell count; Z90.49 Acquired absence of other specified parts of digestive tract; Z91.018 Allergy to other foods; Z79.82 Long term (current) use of aspirin; Z79.84 Long term (current) use of oral hypoglycemic drugs; Z79.899 Other long term (current) drug therapy
CPT/HCPCS: 36415; 36600; 70450; 71045; 80048; 80053; 80202; 81001; 82140; 82803; 82947; 83605; 84146; 85025; 87040; 87086; 93005; 93010; 94644; 94660; 94664; 96374; 97116; 97162; 97530; 99285-25; A9270; J0295; J1650; J1815; J2310; J3370; J7030; J7050; U0004

== ENCOUNTER → 2022-12-26 | Outpatient (CLI) | payer OTHER ==
[2022-12-26 17:22] LABS: BASOPHILS ABSOLUTE AUTO 0.04 K/mm3 (0.00-0.23); BASOPHILS PERCENT AUTO 1 % (0-2); EOSINOPHILS ABSOLUTE AUTO 0.04 K/mm3 (0.00-0.68); EOSINOPHILS PERCENT AUTO 1 % (0-6); Hematocrit 40.9 % (37.0-53.0); Hemoglobin 14.3 g/dL (13.5-17.5); IMMATURE GRAN ABSOLUTE AUTO 0.01 K/mm3 (0.00-0.10); IMMATURE GRAN PERCENT AUTO 0 % (0-1); LYMPHOCYTES ABSOLUTE AUTO 1.39 K/mm3 (0.84-5.20); LYMPHOCYTES PERCENT AUTO 39 % (21-46); MONOCYTES ABSOLUTE AUTO 0.45 K/mm3 (0.16-1.47); MONOCYTES PERCENT AUTO 13 % (4-13); Mean Corpuscular HGB 33.7 pg (26.0-34.0); Mean Corpuscular Volume 97 fL (80-100); Mean Platelet Volume 10.1 fL (9.1-12.4); NEUTROPHILS ABSOLUTE AUTO 1.63 K/mm3 (1.96-9.15); NEUTROPHILS PERCENT AUTO 46 % (41-73); Platelet Count 164 K/mm3 (150-400); RDW Coefficient Variation 12.5 % (11.7-14.2); RDW Standard Deviation 44.4 fL (35.1-46.3); Red Blood Cell Count 4.24 M/mm3 (4.30-5.90); White Blood Cell Count 3.56 K/mm3 (4.00-11.30)
[2022-12-26 18:35] LABS: Alanine Aminotransfer (ALT/SGP 36 U/L (12-78); Albumin, Blood 4.1 g/dL (3.4-5.0); Albumin/Globulin Ratio 0.9 (0.8-1.8); Alk Phos 75 U/L (50-136); Anion Gap 8 mmol/L (6-16); Aspartate Aminotrans (AST/SGOT 32 U/L (12-37); Bilirubin, Total 0.4 mg/dL (0.1-1.0); Blood Urea Nitrogen 6 mg/dL (8-24); Bun/Creatinine Ratio 8.1 (12.0-20.0); CHOL/HDL RATIO 2.3; CO2, Blood 24 mmol/L (21-32); Calcium, Blood 9.4 mg/dL (8.5-10.1); Chloride, Blood 101 mmol/L (98-108); Cholesterol 131 mg/dL (50-200); Creatinine, Blood 0.74 mg/dL (0.60-1.20); Globulin, Blood 4.6 g/dL (2.2-4.0); Glomerular Filtration Rate 107 (60-); Glucose, Blood 87 mg/dL (70-99); HDL Cholesterol 56 mg/dL (>39); LDL/HDL RATIO 0.7; Low Density Lipoprotein Chol 38 mg/dL (0-110); Potassium, Blood 4.2 mmol/L (3.5-5.5); Sodium, Blood 133 mmol/L (136-145); Total Protein, Blood 8.7 g/dL (6.4-8.2); Triglycerides 184 mg/dL (30-160); Very Low Density Lipoprot Chol 36 mg/dL (6-32)
== END ==
LOC: LAB 16:22 → LAB SHORT 16:22
PROVIDERS: Nurse Practitioner Family
DX: I10 Essential (primary) hypertension (principal)
CPT/HCPCS: 80053; 80061; 85025

== ENCOUNTER → 2023-03-27 | Outpatient (CLI) | payer OTHER ==
[2023-03-27 18:54] LABS: Hematocrit 48.3 % (37.0-53.0); Hemoglobin 16.8 g/dL (13.5-17.5); Mean Corpuscular HGB 34.5 pg (26.0-34.0); Mean Corpuscular HGB Conc 34.8 g/dL (31.5-36.5); Mean Corpuscular Volume 99 fL (80-100); Mean Platelet Volume 10.6 fL (9.1-12.4); Platelet Count 187 K/mm3 (150-400); RDW Coefficient Variation 12.8 % (11.7-14.2); RDW Standard Deviation 46.9 fL (35.1-46.3); Red Blood Cell Count 4.87 M/mm3 (4.30-5.90); White Blood Cell Count 5.37 K/mm3 (4.00-11.30)
[2023-03-27 19:22] LABS: BASOPHILS PERCENT MAN 0 % (0-2); EOSINOPHILS PERCENT MAN 0 % (0-6); LYMPHOCYTES ABSOLUTE MAN 1.61 K/mm3 (0.84-5.20); LYMPHOCYTES PERCENT MAN 30 % (21-46); MONOCYTES PERCENT MAN 15 % (4-13); NEUTROPHILS ABSOLUTE MAN 2.95 K/mm3 (1.96-9.15); SEG NEUTROPHILS PERCENT MAN 55 % (41-73); TOTAL CELLS COUNTED 100
[2023-03-27 20:35] LABS: Bun/Creatinine Ratio 10.7 (12.0-20.0); Calcium, Blood 9.2 mg/dL (8.5-10.1); Creatinine, Blood 0.75 mg/dL (0.60-1.20); Potassium, Blood 4.2 mmol/L (3.5-5.5)
[2023-03-31 07:12] LABS: HEMOGLOBIN A1C 5.4 % (4.8-5.6)
== END ==
LOC: LAB SHORT 17:14 → LAB 17:14
PROVIDERS: Nurse Practitioner Family
DX: I10 Essential (primary) hypertension (principal); E11.65 Type 2 diabetes mellitus with hyperglycemia
CPT/HCPCS: 80048; 83036; 85025

== ENCOUNTER → 2024-03-28 | Outpatient (CLI) | payer OTHER ==
[2024-03-28 17:21] LABS: BASOPHILS ABSOLUTE AUTO 0.06 K/mm3 (0.00-0.23); BASOPHILS PERCENT AUTO 2 % (0-2); EOSINOPHILS ABSOLUTE AUTO 0.05 K/mm3 (0.00-0.68); EOSINOPHILS PERCENT AUTO 1 % (0-6); Hematocrit 45.5 % (37.0-53.0); Hemoglobin 16.6 g/dL (13.5-17.5); IMMATURE GRAN PERCENT AUTO 0 % (0-1); LYMPHOCYTES ABSOLUTE AUTO 1.04 K/mm3 (0.84-5.20); LYMPHOCYTES PERCENT AUTO 29 % (21-46); MONOCYTES ABSOLUTE AUTO 0.53 K/mm3 (0.16-1.47); MONOCYTES PERCENT AUTO 15 % (4-13); Mean Corpuscular HGB 34.2 pg (26.0-34.0); Mean Corpuscular HGB Conc 36.5 g/dL (31.5-36.5); Mean Corpuscular Volume 94 fL (80-100); Mean Platelet Volume 10.6 fL (9.1-12.4); NEUTROPHILS ABSOLUTE AUTO 1.96 K/mm3 (1.96-9.15); NEUTROPHILS PERCENT AUTO 54 % (41-73); Platelet Count 139 K/mm3 (150-400); RDW Coefficient Variation 12.1 % (11.7-14.2); RDW Standard Deviation 42.2 fL (35.1-46.3); Red Blood Cell Count 4.85 M/mm3 (4.30-5.90); White Blood Cell Count 3.64 K/mm3 (4.00-11.30)
[2024-03-28 17:35] LABS: Bun/Creatinine Ratio 5.5 (12.0-20.0); Calcium, Blood 9.1 mg/dL (8.5-10.1); Creatinine, Blood 0.73 mg/dL (0.60-1.20); Potassium, Blood 3.4 mmol/L (3.5-5.5); Thyroid Stimulating Hormone 2.04 uIU/mL (0.360-4.800)
== END ==
LOC: LAB SHORT 16:03 → LAB 16:03
PROVIDERS: Nurse Practitioner Family
DX: E78.5 Hyperlipidemia, unspecified (principal); F70 Mild intellectual disabilities
CPT/HCPCS: 80048; 84443; 85025

== ENCOUNTER → 2025-02-28 | Outpatient (CLI) | payer OTHER ==
[2025-02-28 18:57] LABS: BASOPHILS ABSOLUTE AUTO 0.03 K/mm3 (0.00-0.23); BASOPHILS PERCENT AUTO 1 % (0-2); EOSINOPHILS ABSOLUTE AUTO 0.03 K/mm3 (0.00-0.68); EOSINOPHILS PERCENT AUTO 1 % (0-6); Hematocrit 36.4 % (37.0-53.0); Hemoglobin 12.7 g/dL (13.5-17.5); IMMATURE GRAN ABSOLUTE AUTO 0.01 K/mm3 (0.00-0.10); IMMATURE GRAN PERCENT AUTO 0 % (0-1); LYMPHOCYTES ABSOLUTE AUTO 0.96 K/mm3 (0.84-5.20); LYMPHOCYTES PERCENT AUTO 27 % (21-46); MONOCYTES ABSOLUTE AUTO 0.44 K/mm3 (0.16-1.47); MONOCYTES PERCENT AUTO 12 % (4-13); Mean Corpuscular HGB Conc 34.9 g/dL (31.5-36.5); Mean Corpuscular Volume 100 fL (80-100); NEUTROPHILS ABSOLUTE AUTO 2.10 K/mm3 (1.96-9.15); NEUTROPHILS PERCENT AUTO 59 % (41-73); NRBC ABSOLUTE 0.00 K/mm3 (0.00-0.02); NRBC Auto 0.0 /100 WBC (0.0-0.2); Platelet Count 193 K/mm3 (150-400); RDW Coefficient Variation 12.6 % (11.7-14.2); RDW Standard Deviation 45.8 fL (35.1-46.3)
[2025-02-28 19:21] LABS: Alanine Aminotransfer (ALT/SGP 29 U/L (12-78); Albumin, Blood 3.6 g/dL (3.4-5.0); Albumin/Globulin Ratio 0.8 (0.8-1.8); Anion Gap 9 mmol/L (3-11); Aspartate Aminotrans (AST/SGOT 36 U/L (12-37); Bilirubin, Total 0.4 mg/dL (0.1-1.0); Blood Urea Nitrogen 3 mg/dL (8-24); CHOL/HDL RATIO 2.4; CO2, Blood 22 mmol/L (21-32); Calcium, Blood 8.6 mg/dL (8.5-10.1); Chloride, Blood 99 mmol/L (98-108); Cholesterol 129 mg/dL (50-200); Creatinine, Blood 0.60 mg/dL (0.60-1.20); Globulin, Blood 4.7 g/dL (2.2-4.0); Glucose, Blood 101 mg/dL (70-99); HDL Cholesterol 54 mg/dL (>39); LDL/HDL RATIO 0.9; Low Density Lipoprotein Chol 47 mg/dL (0-110); Potassium, Blood 3.4 mmol/L (3.5-5.5); Sodium, Blood 127 mmol/L (136-145); Total Protein, Blood 8.3 g/dL (6.4-8.2); Triglycerides 139 mg/dL (30-160); Very Low Density Lipoprot Chol 27 mg/dL (6-32)
== END ==
LOC: LAB SHORT 18:40 → LAB 18:40
PROVIDERS: Nurse Practitioner Family
DX: E11.42 Type 2 diabetes mellitus with diabetic polyneuropathy (principal); E78.5 Hyperlipidemia, unspecified
CPT/HCPCS: 80053; 80061; 83036; 85025